=== PATIENT | male | born 1970 | race Caucasian/White ===

== ENCOUNTER 2016-12-30 07:09 | Emergency (ER) | payer OTHER ==
[~2016-12-30] VITALS: Ht 172.7 cm; Wt 86.2 kg
[2016-12-30] MEDS ORDERED: HYDROCODONE/APAP 5-325MG TABLET PO ONE (07:30)
--- NOTE | 2016-12-30 07:35 | NUR ---
A/O x 4, vss, nad noted. LLE pain due to burn w/ hot coffee, wet cold compress applied as ordered. Medication given. Cont with MD orders.
[2016-12-30] MEDS ORDERED: HYDROCODONE/APAP 5-325MG TABLET ONE (07:41)
--- NOTE | 2016-12-30 08:14 | NUR ---
Dressing to LLE and cruches provided as orderd. Instrucrted not to drive. Patient discharged home in stable conditon. Written and verbal after care instructions given. Patient verbalizes understanding of instructions.
[2016-12-30 08:17] VITALS: BP 138/94
== END 2016-12-30 08:18 | disposition home or self-care (01) ==
LOC: ER 07:09
DX: T25.222A Burn of second degree of left foot, initial encounter (principal); F17.200 Nicotine dependence, unspecified, uncomplicated; X08.8XXA Exposure to other specified smoke, fire and flames, initial encounter; Y93.89 Activity, other specified; Y99.8 Other external cause status; Y92.89 Other specified places as the place of occurrence of the external cause
CPT/HCPCS: A4663

== ENCOUNTER 2017-01-28 22:19 | Emergency (ER) | payer MEDICAID, OTHER ==
[~2017-01-28] VITALS: Ht 175.3 cm; Wt 83.9 kg
[2017-01-28] MEDS ORDERED: VANCOMYCIN IV 1,000 MG in IV DEXTROSE 5% 250 ML IV ONE (23:00)
[2017-01-28] MEDS ORDERED: TETRACAINE HCL 0.5% OPHT DROP 2 ML BOTTLE OP ONE (23:00)
[2017-01-28] MEDS ORDERED: FLUORESCEIN SODIUM 1 MG STRIP OP ONE (23:00)
[2017-01-28] MEDS ORDERED: CEFTRIAXONE 1 G in IV DEXTROSE 5% 50 ML IV ONE (23:00)
[2017-01-28] MEDS ORDERED: FLUORESCEIN SODIUM 1 MG STRIP ONE (23:17)
[2017-01-28] MEDS ORDERED: TETRACAINE HCL 0.5% OPHT DROP 2 ML BOTTLE ONE (23:17)
[2017-01-28] MEDS ORDERED: CEFTRIAXONE 1 G VIAL ONE (23:39)
[2017-01-29] MEDS ORDERED: VANCOMYCIN IV 200 ML ONE (00:18)
--- NOTE | 2017-01-29 01:20 | NUR ---
Patient discharged to home in stable conditon. Written and verbal after care instructions given. Patient verbalizes understanding of instructions. Ambulated from ER with stable gait. All belongings with patient.
[2017-01-29 01:24] VITALS: BP 130/72
== END 2017-01-29 01:24 | disposition home or self-care (01) ==
LOC: ER 22:19
DX: B99.9 Unspecified infectious disease (principal); H10.89 Other conjunctivitis; L03.213 Periorbital cellulitis; F17.200 Nicotine dependence, unspecified, uncomplicated
CPT/HCPCS: A4663; J0696; J3370; J3490

== ENCOUNTER 2017-11-05 | Emergency (ER) | payer OTHER ==
[~2017-11-05] VITALS: Ht 175.3 cm; Wt 83.9 kg
--- NOTE | 2017-11-05 02:09 | NUR ---
Patient discharged to home in stable conditon. Written and verbal after care instructions given. Patient verbalizes understanding of instructions.
== END 2017-11-05 02:10 | disposition home or self-care (01) ==
LOC: ER 00:03
DX: J11.1 Influenza due to unidentified influenza virus with other respiratory manifestations (principal); F17.200 Nicotine dependence, unspecified, uncomplicated; Z90.49 Acquired absence of other specified parts of digestive tract
CPT/HCPCS: 99282; A4663

== ENCOUNTER 2018-06-12 15:24 | Emergency (ER) | payer OTHER ==
[~2018-06-12] VITALS: Ht 175.3 cm; Wt 83.9 kg
--- NOTE | 2018-06-12 18:06 | NUR ---
Patient discharged to home in stable conditon & brisk steady gait. Written and verbal after care instructions given to patient. Patient verbalizes understanding of instructions.
== END 2018-06-12 18:06 | disposition home or self-care (01) ==
LOC: ER 15:25
DX: S46.911A Strain of unspecified muscle, fascia and tendon at shoulder and upper arm level, right arm, initial encounter (principal); F17.200 Nicotine dependence, unspecified, uncomplicated; X50.0XXA Overexertion from strenuous movement or load, initial encounter; Y93.89 Activity, other specified; Y92.89 Other specified places as the place of occurrence of the external cause; Y99.8 Other external cause status
CPT/HCPCS: 99283; A4663

== ENCOUNTER 2018-08-09 23:56 | Emergency (ER) | payer OTHER ==
[~2018-08-09] VITALS: Ht 177.8 cm; Wt 81.6 kg
--- NOTE | 2018-08-10 00:30 | NUR ---
Patient discharged to home in stable conditon. Written and verbal after care instructions given. Patient verbalizes understanding of instructions.
== END 2018-08-10 00:32 | disposition home or self-care (01) ==
LOC: ER 23:59
DX: S62.636A Displaced fracture of distal phalanx of right little finger, initial encounter for closed fracture (principal); F17.200 Nicotine dependence, unspecified, uncomplicated; W22.01XA Walked into wall, initial encounter; Y93.89 Activity, other specified; Y92.89 Other specified places as the place of occurrence of the external cause; Y99.8 Other external cause status
CPT/HCPCS: 73130; A4663

== ENCOUNTER 2018-11-08 05:54 | Emergency (ER) | payer OTHER ==
[~2018-11-08] VITALS: Ht 175.3 cm; Wt 81.6 kg
--- NOTE | 2018-11-08 06:20 | NUR ---
Dr. Chung at bedside for MSE
--- NOTE | 2018-11-08 06:24 | NUR ---
Pt c/o lower back pain. P/S 07/22.
[2018-11-08] MEDS ORDERED: ONDANSETRON 4 MG/2 ML VIAL ONE (06:27)
[2018-11-08] MEDS ORDERED: HYDROMORPHONE 1 MG/1 ML DISP.SYRIN ONE (06:27)
[2018-11-08] MEDS ORDERED: HYDROMORPHONE 1 MG/1 ML DISP.SYRIN IM ONE (06:30)
[2018-11-08] MEDS ORDERED: ONDANSETRON 4 MG/2 ML VIAL IM ONE (06:30)
--- NOTE | 2018-11-08 06:57 | NUR ---
Patient discharged to home in stable conditon. Written and verbal after care instructions given. Patient verbalizes understanding of instructions. Patient instructed not to drive. Patient accompanied by family. Patient OK to d/c per Dr. Chung. Patient able to ambulate out of dept with steady gait.
[2018-11-08 06:58] VITALS: BP 150/95
== END 2018-11-08 06:59 | disposition home or self-care (01) ==
LOC: ER 05:57
DX: M54.5 Low back pain (principal); Z90.49 Acquired absence of other specified parts of digestive tract; F17.200 Nicotine dependence, unspecified, uncomplicated
CPT/HCPCS: 72100; 96372 ×2; 99283; J1170; J2405; A4663

== ENCOUNTER 2019-12-16 18:14 | Inpatient (IN) | payer MEDICAID, OTHER ==
[~2019-12-16] VITALS: Ht 175.3 cm; Wt 78.6 kg
[2019-12-16] MEDS ORDERED: SWABABLE VALVE TRANSFER SET EA MC ONE (18:54)
[2019-12-16] MEDS ORDERED: IV NORMAL SALINE 250 ML IV ONE (18:54)
[2019-12-16] MEDS ORDERED: IOHEXOL 350 100 ML INFUS..BTL ONE (18:54)
[2019-12-16 19:19] LABS: BASOPHILS # (AUTO) 0.1 K/uL (0.0-8.0); BASOPHILS % (AUTO) 0.8 % (0.0-2.0); EOSINOPHILS # (AUTO) 0.3 K/uL (0.0-0.7); EOSINOPHILS % (AUTO) 4.8 % (0.0-7.0); HEMATOCRIT 43.8 % (36.7-47.1); HEMOGLOBIN 15.1 g/dL (12.5-16.3); LYMPHOCYTES # (AUTO) 1.3 K/uL (20.0-40.0); LYMPHOCYTES % (AUTO) 18.7 % (20.5-51.5); MEAN CORPUSCULAR HEMOGLOBIN 30.2 uug (23.8-33.4); MEAN CORPUSCULAR HGB CONC 35 g/dL (32.5-36.3); MEAN CORPUSCULAR VOLUME 87.5 fL (73.0-96.2); MONOCYTES # (AUTO) 0.7 K/uL (2.0-10.0); MONOCYTES % (AUTO) 10.8 % (0.0-11.0); NEUTROPHILS # (AUTO) 4.5 K/uL (1.8-8.9); NEUTROPHILS % (AUTO) 64.9 % (38.5-71.5); PLATELET COUNT (AUTO) 177 K/uL (152-348); RED BLOOD CELL COUNT(AUTO) 5.01 MIL/uL (4.06-5.63); WHITE BLOOD COUNT (AUTO) 6.9 K/uL (3.6-10.2)
[2019-12-16 19:25] LABS: CARBON DIOXIDE 29 mmol/L (21-32); CHLORIDE 108 mmol/L (98-107); CREATININE 1.1 mg/dL (0.6-1.3); GLUCOSE 89 mg/dL (74-106); UREA NITROGEN, BLOOD 13 mg/dL (7-18)
[2019-12-16 19:31] LABS: ALANINE AMINOTRANSFERASE 18 U/L (16-63); ALKALINE PHOSPHATASE 103 U/L (50-136); ASPARTATE AMINOTRANSFERASE 12 U/L (15-37); BILIRUBIN,DIRECT < 0.1 mg/dL (0.0-0.2); BILIRUBIN,TOTAL 0.3 mg/dL (0.2-1.0); TOTAL PROTEIN, SERUM 6.3 g/dL (6.4-8.2)
[2019-12-16] MEDS ORDERED: ASPIRIN 325 MG TABLET ONE (19:41)
[2019-12-16] MEDS ORDERED: ASPIRIN 325 MG TABLET PO ONE (19:45)
[2019-12-16 21:21] VITALS: BP 154/86
[2019-12-16] MEDS: BLOOD SUGAR DIAGNOSTIC 1 EACH STRIP VI SCH (21:45)
[2019-12-16] MEDS ORDERED: CLONIDINE HCL 0.1 MG TABLET PO PRN (23:30)
[2019-12-17] VITALS: BP 157/106
[2019-12-17] MEDS ORDERED: BLOOD SUGAR DIAGNOSTIC 1 EACH STRIP VI SCH
[2019-12-17 06:01] LABS: BASOPHILS # (AUTO) 0.1 K/uL (0.0-8.0); BASOPHILS % (AUTO) 1.1 % (0.0-2.0); EOSINOPHILS # (AUTO) 0.4 K/uL (0.0-0.7); EOSINOPHILS % (AUTO) 5.8 % (0.0-7.0); HEMATOCRIT 45.5 % (36.7-47.1); HEMOGLOBIN 15.4 g/dL (12.5-16.3); LYMPHOCYTES % (AUTO) 32.4 % (20.5-51.5); MEAN CORPUSCULAR HGB CONC 34 g/dL (32.5-36.3); MEAN CORPUSCULAR VOLUME 88.4 fL (73.0-96.2); MONOCYTES # (AUTO) 0.5 K/uL (2.0-10.0); MONOCYTES % (AUTO) 8.6 % (0.0-11.0); NEUTROPHILS # (AUTO) 3.2 K/uL (1.8-8.9); NEUTROPHILS % (AUTO) 52.1 % (38.5-71.5); PLATELET COUNT (AUTO) 186 K/uL (152-348); RED BLOOD CELL COUNT(AUTO) 5.14 MIL/uL (4.06-5.63); WHITE BLOOD COUNT (AUTO) 6.2 K/uL (3.6-10.2)
[2019-12-17 06:15] LABS: CREATININE 1.1 mg/dL (0.6-1.3); POTASSIUM 4.4 mmol/L (3.5-5.1)
[2019-12-17] MEDS: BLOOD SUGAR DIAGNOSTIC 1 EACH STRIP VI SCH ×2 (06:37→12:33)
[2019-12-17 08:59] VITALS: BP 148/95
[2019-12-17] MEDS ORDERED: ASPIRIN EC 81 MG TABLET.DR PO SCH (09:00)
[2019-12-17] MEDS ORDERED: NICOTINE 14 MG/24HR PATCH TD SCH (09:00)
[2019-12-17 12:03] VITALS: BP 158/99
[2019-12-17] MEDS ORDERED: INFLUENZA VACCINE 2019-2020 0.5 ML DISP.SYRIN IM ONE (15:30)
== END 2019-12-17 16:20 | disposition home or self-care (01) | DRG 47 ==
LOC: ER 18:16 → TELE3 21:07
PROVIDERS: ADMIT Internal Medicine; ATTEND Internal Medicine
DX: G45.9 Transient cerebral ischemic attack, unspecified (principal); E44.0 Moderate protein-calorie malnutrition; F17.210 Nicotine dependence, cigarettes, uncomplicated; R20.0 Anesthesia of skin; R40.2252 Coma scale, best verbal response, oriented, at arrival to emergency department; R40.2362 Coma scale, best motor response, obeys commands, at arrival to emergency department; R40.2142 Coma scale, eyes open, spontaneous, at arrival to emergency department
CPT/HCPCS: 36415; 70030-TC; 70450; 70496; 71045; 85025; 85730; 86850; 86900; 86901; 90686; 93005; 93307; A4663; G0378; J7050; Q9967

== ENCOUNTER 2019-12-21 04:36 | Emergency (ER) | payer MEDICAID ==
[~2019-12-21] VITALS: Ht 175.3 cm; Wt 81.6 kg
--- NOTE | 2019-12-21 04:55 | NUR ---
Dr. Chung at bedside for MSE.
[2019-12-21] MEDS ORDERED: ATORVASTATIN 40 MG TABLET PO SCH (05:00)
[2019-12-21] MEDS ORDERED: ASPIRIN EC 325 MG TABLET.DR PO ONE (05:02)
[2019-12-21 05:07] VITALS: BP 145/65
--- NOTE | 2019-12-21 05:07 | NUR ---
Patient discharged to home in stable conditon. Written and verbal after care instructions given. Patient verbalizes understanding of instructions. PT ambulated out of ER with steady gait, no acute signs of distress, VSS, all belongings taken.
[2019-12-21] MEDS ORDERED: ASPIRIN EC 325 MG TABLET.DR PO SCH (09:00)
== END 2019-12-21 05:08 | disposition home or self-care (01) ==
LOC: ER 04:43
DX: E78.5 Hyperlipidemia, unspecified (principal); F17.200 Nicotine dependence, unspecified, uncomplicated; Z76.0 Encounter for issue of repeat prescription; Z90.49 Acquired absence of other specified parts of digestive tract
CPT/HCPCS: A4663

== ENCOUNTER 2020-05-14 00:06 | Emergency (ER) | payer SELFPAY ==
[~2020-05-14] VITALS: Ht 175.3 cm; Wt 83.9 kg
[2020-05-14] MEDS ORDERED: ATOR20TA27 PO (00:14)
[2020-05-14] MEDS ORDERED: ASPI81TA31 PO (00:14)
--- NOTE | 2020-05-14 00:15 | NUR ---
Dr. Ospina at bedside for MSE.
--- NOTE | 2020-05-14 00:30 | NUR ---
Xray at bedside.
[2020-05-14 00:38] LABS: BASOPHILS # (AUTO) 0.1 K/uL (0.0-8.0); BASOPHILS % (AUTO) 1.3 % (0.0-2.0); EOSINOPHILS # (AUTO) 0.6 K/uL (0.0-0.7); EOSINOPHILS % (AUTO) 8.2 % (0.0-7.0); HEMATOCRIT 42.4 % (36.7-47.1); HEMOGLOBIN 14.5 g/dL (12.5-16.3); LYMPHOCYTES # (AUTO) 2.1 K/uL (20.0-40.0); LYMPHOCYTES % (AUTO) 27.3 % (20.5-51.5); MEAN CORPUSCULAR HGB CONC 34 g/dL (32.5-36.3); MEAN CORPUSCULAR VOLUME 87.7 fL (73.0-96.2); MONOCYTES # (AUTO) 0.6 K/uL (2.0-10.0); MONOCYTES % (AUTO) 7.6 % (0.0-11.0); NEUTROPHILS # (AUTO) 4.3 K/uL (1.8-8.9); NEUTROPHILS % (AUTO) 55.6 % (38.5-71.5); PLATELET COUNT (AUTO) 199 K/uL (152-348); RED BLOOD CELL COUNT(AUTO) 4.83 MIL/uL (4.06-5.63); WHITE BLOOD COUNT (AUTO) 7.8 K/uL (3.6-10.2)
[2020-05-14 00:45] LABS: CREATININE 1.7 mg/dL (0.6-1.3)
[2020-05-14] MEDS ORDERED: ASPIRIN 325 MG TABLET PO ONE (00:45)
[2020-05-14] MEDS ORDERED: ASPIRIN 325 MG TABLET ONE (00:59)
[2020-05-14 01:02] LABS: BILIRUBIN,DIRECT 0.1 mg/dL (0.0-0.2); BILIRUBIN,TOTAL 0.2 mg/dL (0.2-1.0); TOTAL PROTEIN, SERUM 6.7 g/dL (6.4-8.2)
--- NOTE | 2020-05-14 01:15 | NUR ---
Cathleen england in [facility] - 05/14/[address] Ospina at [facility] for MSE.
--- NOTE | 2020-05-14 01:48 | NUR ---
Note samanta in EDM - 05/14/20 at 0148 by ASHLEY Patient discharged to home in stable condition. Written and verbal after care instructions given. Patient verbalizes understanding of instructions. Stressed follow up or return to ER for worsening s/s. Patient out of ER with steady gait, no acute signs of distress, VSS, all belongings taken, IV site discontinued.
--- NOTE | 2020-05-14 01:48 | NUR ---
Patient does not wish to proceed with medical care recommended by Dr. Ospina. Patient given information related to possible complications, up to and including , which could occur as a result of leaving the hospital at this time. Patient verbalizes understanding of risks involved due to leaving against medical advice. Patient has signed AMA form. VSS, no acute signs of distress, all belongings taken.
[2020-05-14 01:54] VITALS: BP 103/65
== END 2020-05-14 01:54 | disposition left against medical advice (07) ==
LOC: ER 00:07
DX: R07.2 Precordial pain (principal); F17.210 Nicotine dependence, cigarettes, uncomplicated; Z82.49 Family history of ischemic heart disease and other diseases of the circulatory system; N28.9 Disorder of kidney and ureter, unspecified; E78.5 Hyperlipidemia, unspecified; Z79.82 Long term (current) use of aspirin; Z79.899 Other long term (current) drug therapy
CPT/HCPCS: 36415; 70030-TC; 71045; 85025; 93005; A4663

== ENCOUNTER 2020-06-13 01:15 | Emergency (ER) | payer SELFPAY ==
[~2020-06-13 01:15] MED LIST: ASPI81TA31 PO; ATOR20TA27 PO
--- NOTE | 2020-06-13 01:25 | NUR ---
Patient stated to meter reading clerk "I change my mind. I don't want to be seen anymore." Patient left without being traiged or seen by ERMD.
== END 2020-06-13 01:28 | disposition left against medical advice (07) ==
LOC: ER 01:20
DX: Z75.3 Unavailability and inaccessibility of health-care facilities (principal)

== ENCOUNTER 2020-07-27 05:28 | Emergency (ER) | payer SELFPAY ==
[~2020-07-27] VITALS: Ht 177.8 cm; Wt 83.9 kg
--- NOTE | 2020-07-27 05:39 | NUR ---
Dr. Tsang at bedside for MSE.
[2020-07-27] MEDS ORDERED: SULFAMETH/TRIMETH 800/160 MG TABLET PO ONE (05:45)
--- NOTE | 2020-07-27 05:46 | NUR ---
Patient discharged to home in stable condition. Written and verbal after care instructions given. Patient verbalizes understanding of instructions. Stressed follow up or return to ER for worsening s/s.
[2020-07-27] MEDS ORDERED: SULFAMETH/TRIMETH 800/160 MG TABLET ONE (05:47)
[2020-07-27 05:48] VITALS: BP 150/65
== END 2020-07-27 05:48 | disposition home or self-care (01) ==
LOC: ER 05:32
DX: S70.362A Insect bite (nonvenomous), left thigh, initial encounter (principal); W57.XXXA Bitten or stung by nonvenomous insect and other nonvenomous arthropods, initial encounter; Y93.H9 Activity, other involving exterior property and land maintenance, building and construction; Y92.89 Other specified places as the place of occurrence of the external cause; F17.210 Nicotine dependence, cigarettes, uncomplicated; Z86.73 Personal history of transient ischemic attack (TIA), and cerebral infarction without residual deficits; E78.5 Hyperlipidemia, unspecified; Z79.82 Long term (current) use of aspirin; Z79.899 Other long term (current) drug therapy; R03.0 Elevated blood-pressure reading, without diagnosis of hypertension
CPT/HCPCS: A4663

== ENCOUNTER 2022-11-30 20:49 | Inpatient (IN) | payer MEDICAID ==
[~2022-11-30] VITALS: Ht 175.3 cm; Wt 71.2 kg
--- NOTE | 2022-11-30 21:43 | NUR ---
PATIENT AMBULATED TO ROOM #1, WITH C/O LEFT NECK PAIN X 2 DAYS. INFORMED OF PLAN OF CARE, ASSISTED INTO A GOWN AND PLACED ON MONITOR. REQUESTED AND GIVEN A WARM BLANKET. NO S/S OF ANY DISTRESS NOTED, SIDE RAILS UP, WILL CONTINUE TO MONITOR.
[2022-11-30] MEDS ORDERED: VANCOMYCIN IV 1,000 MG in IV DEXTROSE 5% 250 ML IV ONE (22:15)
[2022-11-30] MEDS ORDERED: ONDANSETRON 4 MG/2 ML VIAL IV ONE (22:15)
[2022-11-30] MEDS ORDERED: EPINEPHRINE 1 MG/1 ML AMP SQ ONE (22:15)
[2022-11-30] MEDS ORDERED: methylPREDNISolone SOD SUCC 125 MG/2 ML VIAL IV ONE (22:15)
[2022-11-30] MEDS ORDERED: HYDROMORPHONE 1 MG/1 ML DISP.SYRIN IV ONE (22:15)
[2022-11-30] MEDS ORDERED: IV NORMAL SALINE 1000 ML BAG IV ONE (22:15)
[2022-11-30] MEDS ORDERED: diphenhydrAMINE 50 MG/1 ML VIAL IV ONE (22:15)
[2022-11-30] MEDS ORDERED: PIPERACILLIN SODIUM/TAZOBACTAM 3.375 G in IV DEXTROSE 5% 50 ML IV ONE (22:15)
[2022-11-30] MEDS ORDERED: FAMOTIDINE. 20 MG/2 ML VIAL IV ONE ×2 (22:15→22:30)
[2022-11-30 22:17] LABS: HEMATOCRIT 43.9 % (36.7-47.1); MEAN CORPUSCULAR HEMOGLOBIN 29.2 uug (23.8-33.4); MEAN CORPUSCULAR VOLUME 88.3 fL (73.0-96.2); PLATELET COUNT (AUTO) 214 K/uL (152-348)
--- NOTE | 2022-11-30 22:21 | NUR ---
BEDSIDE EKG IN PROGRESS FOR MD REVIEW, #18G ESTABLISHED IN RIGHT AC AREA, BLOOD COLLECTED AND SENT TO LAB. O2 APPLIED PER ORDER, POSITIONED FOR COMFORT. WILL CONTINUE TO MONITOR.
[2022-11-30] MEDS ORDERED: PIPERACILLIN/TAZOBACTAM/D5W 50 ML IV ONE (22:29)
[2022-11-30] MEDS ORDERED: EPINEPHRINE 1 MG/1 ML AMP ONE (22:29)
[2022-11-30] MEDS ORDERED: diphenhydrAMINE 50 MG/1 ML VIAL ONE (22:29)
[2022-11-30] MEDS ORDERED: methylPREDNISolone SOD SUCC 125 MG/2 ML VIAL ONE (22:29)
[2022-11-30] MEDS ORDERED: ONDANSETRON 4 MG/2 ML VIAL ONE (22:29)
[2022-11-30] MEDS ORDERED: HYDROMORPHONE 1 MG/1 ML DISP.SYRIN ONE (22:29)
[2022-11-30 22:31] LABS: BILIRUBIN,DIRECT 0.2 mg/dL (0.0-0.2); BILIRUBIN,TOTAL 0.5 mg/dL (0.2-1.0); POTASSIUM 4.4 mmol/L (3.5-5.1); TOTAL PROTEIN, SERUM 7.2 g/dL (6.4-8.2)
--- NOTE | 2022-11-30 23:01 | NUR ---
Patient resting, easy to arouse, medicated as per order at this time. IVF infusing as ordered.
--- NOTE | 2022-12-01 00:13 | NUR ---
Patient resting remains easy to arouse, aware awaiting admission to the hospital, no voiced c/o at this time. Call place for [facility] personal carer MD.
--- NOTE | 2022-12-01 00:44 | NUR ---
Dr. Tsang on panel call with Corie Savage DNP.
[2022-12-01] MEDS ORDERED: VANCOMYCIN IV 200 ML ONE (00:46)
--- NOTE | 2022-12-01 01:14 | NUR ---
Report given to Kizzy, patient remains stable for transport to unit.
--- NOTE | 2022-12-01 02:08 | NUR ---
Meriins list done, patient has money in his brian pack, does not want to count, large stack of bills noted, Patient states no need to count because he is keeping it with him.
[2022-12-01 02:30] VITALS: BP 163/96
[2022-12-01 04:30] VITALS: BP 150/105
[2022-12-01] MEDS ORDERED: REMEDY ESSENTIAL ZINC PASTE 113 GM TP PRN (05:15)
[2022-12-01] MEDS ORDERED: ONDANSETRON 4 MG/2 ML VIAL IV PRN (05:15)
[2022-12-01] MEDS ORDERED: ACETAMINOPHEN 325 MG TABLET PO PRN (05:15)
[2022-12-01] MEDS ORDERED: MAGNESIUM HYDROXIDE 30 ML LIQUID UDC PO PRN (05:15)
[2022-12-01] MEDS ORDERED: CEFTRIAXONE 1 G in IV DEXTROSE 5% 50 ML IV SCH (06:00)
[2022-12-01] MEDS ORDERED: methylPREDNISolone SOD SUCC 40 MG/ML VIAL IV SCH (06:00)
[2022-12-01] MEDS ORDERED: AZITHROMYCIN IV 500 MG in IV DEXTROSE 5% 250 ML IV SCH (07:00)
--- NOTE | 2022-12-01 07:30 | NUR ---
REPORT GIVEN TO JEROME HOMER
[2022-12-01 07:54] VITALS: BP 154/102
--- NOTE | 2022-12-01 08:00 | NUR ---
Pt alert and oriented x 4. Pt states that he feels better and able to breathe better. Pt had no difficulty swallowing with clear liquid diet. IV on right arm intact no swelling noted no redness noted. SNR on tele no ectopy noted.
[2022-12-01 11:24] LABS: HEMATOCRIT 43.9 % (36.7-47.1); MEAN CORPUSCULAR HEMOGLOBIN 29.3 uug (23.8-33.4); MEAN CORPUSCULAR VOLUME 88.2 fL (73.0-96.2); PLATELET COUNT (AUTO) 212 K/uL (152-348)
[2022-12-01 11:42] LABS: CREATININE 1.2 mg/dL (0.6-1.3); PHOSPHOROUS 3.7 mg/dL (2.5-4.9); POTASSIUM 4.8 mmol/L (3.5-5.1)
[2022-12-01 12:08] VITALS: BP 151/100
[2022-12-01] MEDS ORDERED: CLINDAMYCIN PHOSPHATE IV 900 MG in IV DEXTROSE 5% 44 ML IV SCH (13:00)
[2022-12-01] MEDS: DEXAMETHASONE SOD PHOSPHATE 10 MG INJ IV SCH ×2 (14:18→22:04)
[2022-12-01] MEDS: AMLODIPINE 5 MG TABLET PO SCH (15:16)
[2022-12-01 16:23] VITALS: BP 172/105
--- NOTE | 2022-12-01 18:02 | NUR ---
Pt tolerated soft diet. No difficulty swallowing verbalized with patient and denies any pain while b/p rechecked 154/98- hr 67 ,resp 18, temp 98.0 pt asymptomatic of elevated b/p. Pt did say however he just received "bad news from her daughter". Will continue to monitor patient.
[2022-12-01 20:00] VITALS: BP 152/99
[2022-12-01] MEDS: CLINDAMYCIN PHOSPHATE IV 900 MG in IV DEXTROSE 5% 100 ML IV SCH (22:04)
[2022-12-01] MEDS ORDERED: MELATONIN 3 MG TABLET PO SCH (23:43)
[2022-12-02] VITALS: BP 151/100
[2022-12-02] MEDS: CLINDAMYCIN PHOSPHATE IV 900 MG in IV DEXTROSE 5% 100 ML IV SCH (06:18)
[2022-12-02] MEDS: DEXAMETHASONE SOD PHOSPHATE 10 MG INJ IV SCH (06:20)
[2022-12-02 06:22] LABS: HEMATOCRIT 41.9 % (36.7-47.1); MEAN CORPUSCULAR HEMOGLOBIN 29.5 uug (23.8-33.4); MEAN CORPUSCULAR VOLUME 88.7 fL (73.0-96.2); PLATELET COUNT (AUTO) 227 K/uL (152-348)
[2022-12-02 06:44] LABS: CREATININE 1.2 mg/dL (0.6-1.3); PHOSPHOROUS 3.4 mg/dL (2.5-4.9); POTASSIUM 4.4 mmol/L (3.5-5.1)
--- NOTE | 2022-12-02 07:30 | NUR ---
Sleeping, appears comfortable.
[2022-12-02 07:39] LABS: MAGNESIUM 2.1 mg/dL (1.8-2.4)
[2022-12-02 08:05] VITALS: BP 163/100
[2022-12-02] MEDS: AMLODIPINE 5 MG TABLET PO SCH (08:55)
[2022-12-02] MEDS ORDERED: METH4TAB3 PO (11:49)
[2022-12-02] MEDS ORDERED: CLIN300C12 PO (11:49)
[2022-12-02] MEDS ORDERED: AMLO10TA59 PO (11:55)
[2022-12-02 12:00] VITALS: BP 154/101
--- NOTE | 2022-12-02 13:45 | NUR ---
With discharge order to home. Saline lock removed. Tele removed. Discharge instruction given, verbalized understanding. Went home per ambulatory in fair condition, not in distress, afebrile.
== END 2022-12-02 13:45 | disposition home or self-care (01) | DRG 115 ==
LOC: ER 20:49 → TELE-TD3 23:50 → TELE3 12-01 13:50
PROVIDERS: ADMIT Nurse Practitioner Acute Care; ATTEND Nurse Practitioner Acute Care
DX: K12.2 Cellulitis and abscess of mouth (principal); D72.829 Elevated white blood cell count, unspecified; I10 Essential (primary) hypertension; F17.210 Nicotine dependence, cigarettes, uncomplicated; E78.5 Hyperlipidemia, unspecified; Z87.442 Personal history of urinary calculi; Z20.822 Contact with and (suspected) exposure to COVID-19
CPT/HCPCS: 36415; 70490; 71045; 83735; 84100; 84484; 85025; 93005; G0378; J0171; J0456; J0696; J1100; J1170; J1200; J2405; J2543; J2920; J2930; J3370; J3490; J7040; J7050